=== PATIENT | male | born 1965 | race African-American/Black ===

== ENCOUNTER 2017-10-04 20:20 | Emergency (ER) | payer OTHER | END 2017-10-04 20:40 | disposition home or self-care (01) | LOC: ERS 20:20 | DX: R59.0 Localized enlarged lymph nodes; Z79.899 Other long term (current) drug therapy; I10 Essential (primary) hypertension | CPT/HCPCS: 99282 ==

== ENCOUNTER 2017-10-05 06:46 | Emergency (ER) | payer OTHER ==
[2017-10-05 07:34] LABS: #Eosinphils 0.1 thou/uL (0.0-0.7); #Lymphocytes 1.8 thou/uL (1.20-3.40); #Monocytes 0.9 thou/uL (0.11-0.59); #Neutrophils 10.5 thou/uL (1.40-6.50); %Basophils 0.3 % (0.0-1.0); %Eosinophils 0.4 % (0.0-10.0); %Lymphocytes 13.6 % (21.0-51.0); %Monocytes 6.5 % (0.0-10.0); %Neutrophils 79.1 % (42.0-75.0); Hemoglobin 13.9 g/dL (14.0-18.0); Mean Corpuscular HGB CONC 33.4 g/dL (32.0-36.0); Mean Corpuscular Hemoglobin 31.2 pg (27.0-31.0); Mean Corpuscular Volume 93.3 fl (80.0-94.0); Mean Platelet Volume 8.3 fL (7.4-10.4); Platelet Count 266 thou/uL (130-400); RBC Distribution Width 11.9 % (11.5-14.5); Red Blood Cell (RBC) Count 4.45 mill/uL (4.70-6.10); White Blood Cell (WBC) Count 13.2 thou/uL (4.8-10.8)
[2017-10-05 07:59] LABS: ALT (SGPT) 21 U/L (8-55); AST (SGOT) 14 U/L (5-34); Albumin 4.5 g/dL (3.5-5.0); Alkaline Phosphatase 75 U/L (40-150); Anion Gap 10 mmol/L (10-20); BUN (Urea Nitrogen) 11 mg/dL (8.4-25.7); Bilirubin, Total 0.8 mg/dL (0.2-1.2); Calc. Creatinine Clearance 0 mL/min (70-130); Calcium 9.6 mg/dL (7.8-10.44); Carbon Dioxide 31 mmol/L (22-29); Chloride 101 mmol/L (98-107); Estimated GFR-MDRD Greater than 90; Globulin 3.6 g/dL (2.4-3.5); Glucose 114 mg/dL (70-105); Potassium 3.7 mmol/L (3.5-5.1); Protein, Total 8.1 g/dL (6.0-8.3); Sodium 138 mmol/L (136-145)
[2017-10-05] MEDS ORDERED: Ketorolac Tromethamine 30 MG/ML VIAL ONE (08:09)
--- NOTE | 2017-10-05 09:09 | CT ---
CT NECK WITH CONTRAST: Date: 10/05/17 HISTORY: 51-year-old male with cervicalgia: Sore throat and swollen glands for 1-2 days.. Dysphagia. FINDINGS: Pharyngeal mucosal space: Diffuse thickening of mucosa throughout the nasopharynx, oropharynx, and l arynx, consistent with pharyngitis. Diffuse hyperplasia of the adenoids, but the palatine tonsils and adenoids are not significantly enlarged. Submandibular space: There is a 9 x 10 x 6 mm calculus within the right submandibular gland. No evid ence of ductal ectasia. There is a punctate 2 x 1.5 mm calcification in the right pharyngeal mucosal space, probably not along the path of the submandibular duct. The right submandibular gland is asymme trically diffusely enlarged, and has increased enhancement, compared to the relatively normal contral ateral left submandibular gland. There is fat stranding representing edema in the right submandibular space, and in the adjacent superficial subcutaneous fat on the right. There are multiple enlarged bi lateral, reactive Level IA (submental) and IB (submandibular) lymph nodes, right greater than left. T he right Level IIA and IIB lymph nodes are larger and greater in number compared to the left. Other than the right-sided cervical lymphadenopathy, no abnormality is identified involving the poste rior cervical, parotid, carotid, and branch operations coordinator spaces. IMPRESSION: 1. Evidence for sialadenitis involving the right submandibular gland. 2. Sialolithiasis: Moderately large calculus within the right submandibular gland. 3. Evidence for pharyngitis and possible laryngitis. 4. No evidence of abscess. POS: [facility]
[2017-10-05] MEDS ORDERED: ISOVUE-370 76%-LOCM 1 ML ONE (14:44)
== END 2017-10-05 10:01 | disposition home or self-care (01) ==
LOC: ERS 06:46
DX: K11.20 Sialoadenitis, unspecified (principal); K11.5 Sialolithiasis; J02.9 Acute pharyngitis, unspecified; E78.5 Hyperlipidemia, unspecified; I10 Essential (primary) hypertension
CPT/HCPCS: 36415; 70491; 80053; 83605; 85025; 96361; 96374; J1885

== ENCOUNTER 2017-10-10 23:01 | Inpatient (IN) | payer OTHER ==
[2017-10-11 01:53] LABS: Hemoglobin 14.1 g/dL (14.0-18.0); Mean Corpuscular HGB CONC 33.3 g/dL (32.0-36.0); Mean Corpuscular Hemoglobin 30.4 pg (27.0-31.0); Mean Corpuscular Volume 91.4 fl (80.0-94.0); Mean Platelet Volume 7.9 fL (7.4-10.4); Platelet Count 365 thou/uL (130-400); RBC Distribution Width 11.8 % (11.5-14.5); Red Blood Cell (RBC) Count 4.64 mill/uL (4.70-6.10); White Blood Cell (WBC) Count 20.9 thou/uL (4.8-10.8)
[2017-10-11 02:11] LABS: Band 1 % (5-11); Eosinophils 2 % (0-10); Lymphocytes 13 % (21-51); MDiff Complete? YES; Monocytes 8 % (0-10); Neutrophil 76 % (42-75)
[2017-10-11 02:13] LABS: ALT (SGPT) 31 U/L (8-55); AST (SGOT) 18 U/L (5-34); Albumin 4.2 g/dL (3.5-5.0); Alkaline Phosphatase 85 U/L (40-150); Anion Gap 14 mmol/L (10-20); BUN (Urea Nitrogen) 19 mg/dL (8.4-25.7); Bilirubin, Total 1.5 mg/dL (0.2-1.2); Calc. Creatinine Clearance 0 mL/min (70-130); Carbon Dioxide 27 mmol/L (22-29); Chloride 100 mmol/L (98-107); Estimated GFR-MDRD Greater than 90; Globulin 4.9 g/dL (2.4-3.5); Glucose 118 mg/dL (70-105); Protein, Total 9.1 g/dL (6.0-8.3); Sodium 137 mmol/L (136-145)
[2017-10-11] MEDS ORDERED: Dexamethasone 10 MG/ML VIAL ONE (02:31)
[2017-10-11] MEDS ORDERED: Ketorolac Tromethamine 30 MG/ML VIAL ONE ×2 (03:22→15:39)
[2017-10-11] MEDS ORDERED: Piperacillin/Tazobactam 4.5 GM VIAL ONE (04:40)
[2017-10-11] MEDS ORDERED: Mag-Al 1200 mg/1200 mg/30 ML UDCUP PO PRN (06:28)
[2017-10-11] MEDS ORDERED: Artificial Tears 18 DROP/0.9 ML EA EYE PRN (06:28)
[2017-10-11] MEDS ORDERED: Loperamide HCl 2 MG CAP PO PRN (06:28)
[2017-10-11] MEDS ORDERED: Zolpidem Tartrate 5 MG TAB PO PRN (06:28)
[2017-10-11] MEDS ORDERED: Ketorolac Tromethamine 30 MG/ML VIAL IVP PRN (06:28)
[2017-10-11] MEDS ORDERED: Milk Of Magnesia 30 ML UDCUP PO PRN (06:28)
[2017-10-11] MEDS ORDERED: Acetaminophen 325 MG TAB PO PRN (06:28)
[2017-10-11] MEDS ORDERED: Loratadine 10 MG TAB PO PRN (06:28)
[2017-10-11] MEDS ORDERED: Senokot 8.6 MG TAB PO PRN (06:28)
[2017-10-11] MEDS ORDERED: HYDROcodone/Acetaminophen 5/325 mg Tablet PO PRN (06:28)
[2017-10-11] MEDS ORDERED: Eucerin (Mineral Oil/Petrolatum,White) 30 gm Jar TOP PRN (06:28)
[2017-10-11] MEDS ORDERED: Ondansetron ODT 4 MG TAB PO PRN (06:28)
[2017-10-11] MEDS ORDERED: Sodium Chloride 0.65% Nasal 44 ML BOT EA NARE PRN (06:28)
[2017-10-11] MEDS ORDERED: Guaifenesin DM 100-10/5 ML UDCUP PO PRN (06:28)
[2017-10-11] MEDS ORDERED: hydrALAZINE 20 MG/ML VIAL SLOW IVP PRN (06:28)
[2017-10-11] MEDS ORDERED: Chloraseptic Spray 180 ml Bottle PO PRN (06:28)
[2017-10-11] MEDS ORDERED: Ondansetron HCl/PF 4 MG/2 ML Vial IVP PRN ×2 (06:28→10:23)
[2017-10-11] MEDS ORDERED: Diabetic Tussin 200 MG/10 ML UDCUP PO PRN (06:28)
[2017-10-11 06:30] VITALS: BMI 34.9
[2017-10-11] MEDS ORDERED: Morphine 4 MG/ML VIAL SLOW IVP PRN (07:00)
[2017-10-11] MEDS ORDERED: Vancomycin HCl 500 MG in Sodium Chloride 0.9% 100 ML IVPB SCH (07:30)
--- NOTE | 2017-10-11 07:45 | HP ---
PRIMARY CARE PHYSICIAN: Dr. Lester Fernandez. REASON FOR ADMISSION: Submandibular gland abscess, dysphagia, failure of outpatient therapy, sialoli thiasis to submandibular gland. HISTORY OF PRESENT ILLNESS: A 51-year-old -[place] male who presented to emergency room for evaluation of trouble swallowing. The patient reports that he has stone in his right mandibular glan d for about 10 days. He saw ENT doctor, Dr. Serrano on and he was given 2 steroid shots and he was kept on oral antibiotic therapy with Keflex. The patient took 6 doses of Keflex at home, but his swelling was getting worse. He was not feeling normal and now he started having difficulty swall owing and his voice also started muffling and was gotten worse and that is why the patient came to ergency room for evaluation. He denies any fever. He denies any chest pain, palpitation, shortness of breath. He denies any UTI symptoms. He denies any constipation, diarrhea. He denies any headach e, focal motor or sensory symptoms. The patient does have dull aching pain in his throat which is throbbing in nature about 10/10 in inte nsity, exaggerate by food, also having difficulty swallowing and it is painful swallowing. The patie nt voice also changed to muffled voice. He denies any stridor. In the emergency room, the patient had CT soft tissue neck protocol and which showed 5.7 x 4.6 x 5.7 cm large partially loculated rim enhancing fluid collection in the right oropharynx, which was consis tent with right submandibular gland abscess and surrounding cellulitis with a 7 mm stone in submandib ular gland. This abscess was posing mass effect on the right to left shift on narrowing of the glott is and subglottic airway. The patient also had leukocytosis. We are admitting this patient in hospital for further evaluation and treatment. REVIEW OF SYSTEMS: The following complete review of systems was negative, unless otherwise mentioned in the HPI or below: Constitutional: Weight loss or gain, ability to conduct usual activities. Sk in: Rash, itching. Eyes: Double vision, pain. ENT/Mouth: Nose bleeding, neck stiffness, pain, te nderness. Cardiovascular: Palpitations, dyspnea on exertion, orthopnea. Respiratory: Shortness of breath, wheezing, cough, hemoptysis, fever or night sweats. Gastrointestinal: Poor appetite, abdom inal pain, heartburn, nausea, vomiting, constipation, or diarrhea. Genitourinary: Urgency, frequenc y, dysuria, nocturia. Musculoskeletal: Pain, swelling. Neurologic/Psychiatric: Anxiety, depressio n. Allergy/Immunologic: Skin rash, bleeding tendency. Please see my HPI for pertinent positive and negative. All other review of systems reviewed and negative except as mentioned in the HPI. ALLERGIES: No known drug allergy. CURRENT HOME MEDICATIONS: Lisinopril 2.5 mg p.o. daily. PAST MEDICAL HISTORY: Hypertension, dyslipidemia, recent diagnosis of sialolithiasis of submandibula r gland. PAST SURGICAL HISTORY: Fistula surgery, unknown type. PAST PSYCHIATRIC HISTORY: Reviewed and negative. SOCIAL HISTORY: The patient lives at home. No history of tobacco, alcohol or illicit drug abuse. FAMILY HISTORY: No strong family history of premature coronary artery disease, stroke or cancer. EMERGENCY ROOM COURSE: The patient has received vancomycin, Zosyn, Toradol 30 mg, Decadron 8 mg, IV fluid 2 liter. PHYSICAL EXAMINATION: VITAL SIGNS: On arrival, blood pressure 131/84, pulse 90, respiratory rate 20, temperature 98.8, sat uration 97% on room air, weight 90.7 kilograms. GENERAL: The patient is currently alert, awake, no obvious acute distress, afebrile. HEAD: Normocephalic, atraumatic. EYES: Pupils are round, reactive to light. Extraocular muscle intact. No nystagmus. ENT: The patient has a right ear erythema and bulging of the right-sided tympanic membrane. Pharyng eal erythema noted, but no exudate. Trismus is also noted because of swelling. NECK: The patient does have cervical lymphadenopathy, induration noted on the right side of the neck in the submandibular region. LUNGS: Clear to auscultation without any rhonchi or rales. CARDIAC: S1, S2 regular without any murmur. ABDOMEN: Soft, bowel sounds present, nontender, nondistended. No organomegaly, no mass, no suprapub ic tenderness. BACK: Unremarkable, no CVA tenderness. EXTREMITIES: Upper extremities: Passive movement of all joints are normal. Lower extremities: No edema. Good peripheral pulsation. SKIN: No skin rash. HEMATOLOGICAL: No lymphadenopathy. PSYCHIATRIC: Normal affect. SIGNIFICANT LABORATORY DATA: CBC: WBC 20.9, hemoglobin 14.1, platelets 365 with bandemia. BMP: So dium 137, potassium 4.0, chloride 100, carbon dioxide 27, anion gap 14, BUN 19, creatinine 1.02, gluc ose 118, calcium 10.0, lactic acid 0.9. LFT: AST 18, ALT 31, alkaline phosphatase 85, albumin 4.2. ASSESSMENT AND PLAN: IMPRESSION: 1. Dysphagia due to mass effect of submandibular gland enlargement. 2. Submandibular gland enlargement with cellulitis and abscess on the right side that is precipitate d by sialolithiasis and failed outpatient therapy. 3. Sialolithiasis of submandibular gland. 4. Failure of outpatient therapy. 5. Leukocytosis. 6. Hypertension. PLAN: 1. Full admission to medical floor. ENT consultation. The patient will need possible surgical inte rvention. We will continue with broad spectrum antibiotic therapy with vancomycin and Zosyn. Pain w ill be controlled with Toradol 15 mg q.6 hourly and morphine p.r.n. basis. For swelling, we will als o continue with Decadron 4 mg IV q.8 hourly. As patient is not able to take oral intake, that is why we will hydrate him with IV fluid with NS at 100 mL per hour. We will use p.r.n. basis his blood pr essure medication. We will repeat labs tomorrow. 2. Deep venous thrombosis prophylaxis. Lovenox 40 mg subcu daily. 3. Gastrointestinal prophylaxis. Pepcid 20 mg IV b.i.d. 4. Code status: The patient is FULL CODE. The patient does not have any surrogate decision maker. Disposition plan based on clinical course. We are expecting patient's stay in hospital more than 2 m idnights. Plan of care discussed with the patient in detail.
[2017-10-11] MEDS: Sodium Chloride 0.9% 1,000 ML IV SCH (07:57)
[2017-10-11] MEDS: Enoxaparin Sodium 40 MG/0.4 ML SYRINGE SC SCH (07:58)
[2017-10-11] MEDS: Famotidine 40 MG/4 ML VIAL IV SCH (07:58)
[2017-10-11] MEDS: Dexamethasone 4 mg/ml Vial SLOW IVP SCH ×3 (09:34→22:02)
[2017-10-11] MEDS ORDERED: Lidocaine 1% w/Epinephrine 1:200K 30 ML VIAL ONE (09:58)
[2017-10-11] MEDS ORDERED: Midazolam HCl 2 mg/2 ml Vial ONE (10:04)
[2017-10-11] MEDS ORDERED: Fentanyl 250 MCG/5 ML VIAL ONE (10:04)
[2017-10-11] MEDS ORDERED: Phenylephrine 1% Nasal Spray 15 ML BOT ONE (10:12)
[2017-10-11] MEDS ORDERED: Promethazine HCl 25 MG/ML VIAL SLOW IVP PRN (10:23)
[2017-10-11] MEDS ORDERED: Promethazine HCl 25 MG/ML VIAL IM PRN (10:23)
[2017-10-11] MEDS ORDERED: Bupivacaine HCl 0.5%/Epinephrine 1:200,000/PF 30 ml Vial ONE (10:41)
[2017-10-11] MEDS ORDERED: HYDROmorphone 0.5 MG/0.5 ML SYRINGE ONE (11:12)
[2017-10-11] MEDS ORDERED: Dexamethasone 4 mg/ml Vial ONE (11:12)
[2017-10-11] MEDS ORDERED: SUGAMMADEX SODIUM 500 MG/5 ML VIAL ONE (11:12)
[2017-10-11] MEDS ORDERED: Piperacillin/Tazobactam 3.375 GM in Sodium Chloride 0.9% 100 ML IVPB SCH (12:00)
[2017-10-11] MEDS: Clindamycin/D5W 900 MG in Premix Bag 1 BAG IVPB SCH ×2 (14:40→22:03)
--- NOTE | 2017-10-11 15:04 | OP ---
DATE OF PROCEDURE: 10/11/2017 PREOPERATIVE DIAGNOSIS: Right submandibular space abscess secondary to sialolithiasis. POSTOPERATIVE DIAGNOSIS: Right submandibular space abscess secondary to sialolithiasis. PROCEDURE PERFORMED: Incision and drainage of right submandibular space abscess through external jose rock. SURGEON: Genaro Nevarez M.D. FLOOR CARE TECHNICIAN: None. ANESTHESIA: General endotracheal anesthetic. ESTIMATED BLOOD LOSS: 30 mL. FLUIDS: 1000 mL crystalloid. COMPLICATIONS: None. FINDINGS: Large pus-filled abscess tracking medial to the masseter. IMPLANTS: Quarter inch Lisa sutured in place. INDICATIONS FOR SURGERY: The patient is a 51-year-old man with a progressively worsening right subma ndibular space abscess. He is having some airway blockage. He is brought to the operating room [facility] for incision and drainage. DESCRIPTION OF OPERATION: After properly identifying the patient, the patient was brought to the ope rating room and placed on the operating table, placed under adequate general endotracheal anesthetic, required difficult airway intubation as there was considerable swelling of the hypopharynx from that right side. Once the intubation was confirmed, the patient was then prepped and draped in usual jamshid rile fashion. The patient's neck was extended and head turned to the left. An incision was made hollie ng the level of the hyoid bone and along the relaxing skin tension line on the neck. The platysma wa s transected and then blunt dissection was carried out towards the abscess until the abscess was ente red and a large amount of pus was expressed. A sample was taken for culture and sensitivity. I then used my finger to probe the abscess to verify there was no loculations and all of the abscess was op ened. I then irrigated with saline and then a quarter inch [place] was inserted into the wound and t he [place] was sutured in place. The patient was cleaned. A Kerlix fluffs were applied and then a r oll placed around the neck to keep the bandage in place. At this point, the patient was turned back over to Anesthesia. The patient was awakened and extubated in the operating room and taken to recove room in stable condition.
--- NOTE | 2017-10-11 15:17 | CT ---
PRELIMINARY REPORT/[facility]/EMERGENTY AFTER-HOURS PROCEDURE CT Neck With Intravenous Contrast EXAM DATE/TIME: Exam ordered 10/11/2017 2:49 AM CLINICAL HISTORY: 51 years old, male; Pain; Throat pain; Patient HX: 51m presents to the ed for evaluation of increased trouble swallowing today. Reports stone in right submandibular gland for about 10 days. Reports seei ng dr. Serrano on and was given 2 steroid shots and has been on keflex 3 days (has gotten 6 d oses). Reports overall swelling has gone down but throat swelling has gotten worse and has been havin g a hard time swallowing and has a muffled voice which is worse today. Patient states dr. Serrano ment ioned surgery once swelling does down. TECHNIQUE: Axial computed tomography images of the neck with intravenous contrast. Coronal and sagittal reformatted images were created and reviewed. COMPARISON: No relevant prior studies available. FINDINGS: Nasopharynx: Normal. Oropharynx: There is a 5.7 X 4.6 x 5.7 cm large partially loculated rim-enhancing fluid collection wi thin the RIGHT oropharynx in the setting of marked RIGHT submandibular gland enlargement and hyper en hancement with extensive surrounding inflammatory stranding consistent with acute cellulitis with abs cess. There is a 7 mm calculus adjacent to the submandibular gland compatible sialolithiasis. This re sults in mass effect on the airway with RIGHT to LEFT shift and narrowing of the glottic/subglottic a irway. Hypopharynx: See above. Larynx: See above. Trachea: Normal. Retropharyngeal space: Normal. Submandibular/parotid glands: See above. Thyroid: Normal. No enlarged or calcified nodules. Bones/joints: No acute fracture. Soft tissues: Normal. Vasculature: No acute findings. Lymph nodes: Normal. No lymphadenopathy. Lung apices: Unremarkable as visualized. IMPRESSION: RIGHT submandibular sialadenitis/sialolithiasis complicated by large 5.7 cm abscess as above. Narrowi ng of the airway as above. Thank you for allowing us to participate in the care of your patient. Dictated and Authenticated by: Black Goodrich MD 10/11/2017 4:14 AM Central Time ([place] & [place]) FINAL REPORT CONTRAST ENHANCED CT IMAGES SOFT TISSUE NECK: HISTORY: The patient reports having a right submandibular stone. FINDINGS: Final report. Preliminary exam was performed by [facility]. CT images of soft tissue neck again demonstrate a large fluid-filled density in the right submandibul ar space. There are enhancing solid components as well as extensive cystic portions. There is a lar ge approximately 7 mm salivary calculus. The overall size of the submandibular abscess is significan tly increased compared to the previous CT from 10/05/18. I concur with the dictation from [facility]. POS: [facility]
[2017-10-11] MEDS ORDERED: Lidocaine 1% PF 5 ML VIAL ONE (15:39)
[2017-10-11] MEDS ORDERED: Dexamethasone 20 MG/5 ML VIAL ONE (15:39)
[2017-10-11] MEDS ORDERED: Succinylcholine Chloride 20 MG/ML 10 ml SYRINGE FS ONE (15:39)
[2017-10-11] MEDS ORDERED: Ondansetron HCl/PF 4 MG/2 ML Vial ONE (15:39)
[2017-10-11] MEDS ORDERED: PROPOFOL 200 MG/20 ML VIAL ONE (15:39)
[2017-10-11] MEDS ORDERED: Esmolol 100 MG/10 ML VIAL ONE (15:39)
[2017-10-11] MEDS ORDERED: ISOVUE-370 76%-LOCM 1 ML ONE (16:39)
[2017-10-11] MEDS ORDERED: Vancomycin HCl 1.5 GM in Sodium Chloride 0.9% 250 ML 300 ML IVPB SCH (18:00)
[2017-10-12] MEDS: Famotidine 40 MG/4 ML VIAL IV SCH ×3 (05:09→20:22)
[2017-10-12] MEDS: Sodium Chloride 0.9% 1,000 ML IV SCH ×4 (05:09→19:08)
[2017-10-12 05:38] LABS: Band 2 % (5-11); Eosinophils 3 % (0-10); Hemoglobin 12.5 g/dL (14.0-18.0); Lymphocytes 29 % (21-51); MDiff Complete? YES; Mean Corpuscular HGB CONC 33.6 g/dL (32.0-36.0); Mean Corpuscular Hemoglobin 32.1 pg (27.0-31.0); Mean Corpuscular Volume 95.7 fl (80.0-94.0); Monocytes 7 % (0-10); Neutrophil 59 % (42-75); Platelet Count 311 thou/uL (130-400); RBC Distribution Width 11.8 % (11.5-14.5); White Blood Cell (WBC) Count 28.9 thou/uL (4.8-10.8)
[2017-10-12 05:50] LABS: ALT (SGPT) 37 U/L (8-55); AST (SGOT) 21 U/L (5-34); Albumin 3.5 g/dL (3.5-5.0); Alkaline Phosphatase 78 U/L (40-150); Anion Gap 11 mmol/L (10-20); BUN (Urea Nitrogen) 17 mg/dL (8.4-25.7); Bilirubin, Total 0.7 mg/dL (0.2-1.2); Calc. Creatinine Clearance 149 mL/min (70-130); Calcium 8.9 mg/dL (7.8-10.44); Carbon Dioxide 25 mmol/L (22-29); Chloride 106 mmol/L (98-107); Estimated GFR-MDRD Greater than 90; Globulin 3.9 g/dL (2.4-3.5); Glucose 109 mg/dL (70-105); Potassium 4.4 mmol/L (3.5-5.1); Protein, Total 7.4 g/dL (6.0-8.3); Sodium 138 mmol/L (136-145)
[2017-10-12] MEDS: Dexamethasone 4 mg/ml Vial SLOW IVP SCH ×3 (05:50→21:26)
[2017-10-12] MEDS: Clindamycin/D5W 900 MG in Premix Bag 1 BAG IVPB SCH ×3 (05:51→21:26)
[2017-10-12] MEDS: Enoxaparin Sodium 40 MG/0.4 ML SYRINGE SC SCH (08:43)
[2017-10-12] MEDS ORDERED: Bisoprolol Fumarate/HCTZ 5 mg/6.25 mg Tablet PO SCH (09:15)
[2017-10-12] MEDS ORDERED: Amlodipine 5 MG TAB PO SCH (09:15)
[2017-10-12] MEDS: Amlodipine 5 MG TAB PO SCH (09:41)
[2017-10-12] MEDS: Bisoprolol Fumarate/HCTZ 5 mg/6.25 mg Tablet PO SCH (10:08)
--- NOTE | 2017-10-12 12:54 | PDOC.PN ---
- Subjective Encounter Start Date: 10/12/17 Encounter Start Time: 08:00 Pt seen for followup re: submandibular abscess. Feels better. denies chest pain, shortness of breath, fevers or chills. - Objective Resuscitation Status: Resuscitation Status FULL:Full Resuscitation MAR Reviewed: Yes Vital Signs & Weight: Vital Signs (12 hours) Temp Pulse Resp BP BP Pulse Ox 10/12/17 09:41 76 161/103 H 10/12/17 08:00 98.2 F 73 16 161/103 H 97 10/12/17 04:00 98.1 F 77 18 167/96 H 96 I&O: 10/11/17 10/12/17 10/13/17 06:59 06:59 06:59 Intake Total 1000 240 Balance 1000 240 Result Diagrams: 10/12/17 04:08 10/12/17 04:08 Phys Exam - Physical Examination Obese HEENT: PERRLA, moist MMs, sclera anicteric, oral pharynx no lesions Dressing Respiratory: no wheezing, no rales, no rhonchi, clear to auscultation bilateral Cardiovascular: RRR, no rub Gastrointestinal: soft, non-tender, no distention, positive bowel sounds Neurological: moves all 4 limbs Psychiatric: normal affect, A&O x 3 Dx/Plan (1) Submandibular abscess Code(s): K12.2 - CELLULITIS AND ABSCESS OF MOUTH Status: Acute Comment: s/p drainage by ENT service, continue antibiotics as below (2) Sialolithiasis Code(s): K11.5 - SIALOLITHIASIS Status: Acute Comment: sialolithiasis causing submandibular abscess, s/p drainage (3) HTN (hypertension) Code(s): I10 - ESSENTIAL (PRIMARY) HYPERTENSION Status: Chronic Comment: Monitor vital signs, titrate antihypertensives as needed (4) Dyslipidemia Code(s): E78.5 - HYPERLIPIDEMIA, UNSPECIFIED Status: Chronic Comment: continue Pravachol - Plan * . Review of Systems - Review of Systems Constitutional: negative: fever, chills, sweats, weakness, malaise ENT: negative: Ear Pain, Ear Discharge, Nose Pain, Nose Discharge, Nose Congestion, Mouth Pain, Mouth Swelling, Throat Pain, Throat Swelling Respiratory: negative: Cough, Shortness of Breath, SOB with Excertion, Pleuritic Pain, Wheezing Cardiovascular: negative: chest pain, palpitations, orthopnea, paroxysmal nocturnal dyspnea, edema, light headedness Gastrointestinal: negative: Nausea, Vomiting, Abdominal Pain, Diarrhea, Constipation, Melena, Hematochezia Genitourinary: negative: Dysuria, Frequency, Incontinence, Hematuria, Retention - Medications/Allergies Allergies/Adverse Reactions: Allergies Allergy/AdvReac Type Severity Reaction Status Date / Time No Known Allergies Allergy Unverified 10/11/17 06:37 Medications: Current Medications Acetaminophen (Tylenol) 650 mg PO Q4H PRN PRN Reason: Headache/Fever or Pain Hydrocodone Bitart/Acetaminophen ([place] 5/325) 1 tab PO Q4H PRN PRN Reason: Moderate Pain (4-6) Al Hydroxide/Mg Hydroxide (Maalox) 30 ml PO Q6H PRN PRN Reason: Heartburn or Indigestion Amlodipine Besylate (Norvasc) 5 mg PO DAILY [facility] Last Admin: 10/12/17 09:41 Dose: 5 mg Artificial Tears (Tears Naturale) 0 drop EA EYE PRN PRN PRN Reason: Dry Eyes Bisoprolol Fumarate/HCTZ (Ziac 5-6.25) 1 tab PO DAILY [facility] Last Admin: 10/12/17 10:08 Dose: 1 tab Dexamethasone (Decadron) 4 mg SLOW IVP Q8HR [facility] Last Admin: 10/12/17 05:50 Dose: 4 mg Enoxaparin Sodium (Lovenox) 40 mg SC 0900 [facility] Last Admin: 10/12/17 08:43 Dose: 40 mg Famotidine (Pepcid) 20 mg IV Q12HR [facility] Last Admin: 10/12/17 10:09 Dose: 20 mg Guaifenesin (Robitussin Sf) 200 mg PO Q4H PRN PRN Reason: Cough Guaifenesin/Dextromethorphan (Robitussin Dm) 15 ml PO Q4H PRN PRN Reason: Cough Hydralazine HCl (Apresoline) 10 mg SLOW IVP Q4H PRN PRN Reason: Systolic BP > 180 Sodium Chloride (Normal Saline 0.9%) 1,000 mls @ 100 mls/hr IV .Q10H [facility] Last Admin: 10/12/17 05:50 Dose: 1,000 mls Clindamycin Phosphate/Dextrose (900 mg/ Device) 50 mls @ 100 mls/hr IVPB Q8HR [facility] Last Admin: 10/12/17 05:51 Dose: 50 mls Ketorolac Tromethamine (Toradol) 15 mg IVP Q6H PRN PRN Reason: Pain Stop: 10/16/17 06:29 Loperamide HCl (Imodium) 2 mg PO PRN PRN PRN Reason: Diarrhea/Loose Stools Loratadine (Claritin) 10 mg PO DAILYPRN PRN PRN Reason: Sinus Symptoms Magnesium Hydroxide (Milk Of Magnesium) 30 ml PO DAILYPRN PRN PRN Reason: Constipation Mineral Oil/White Petrolatum (Eucerin Cream) 0 gm TOP BIDPRN PRN PRN Reason: Dry Skin Morphine Sulfate (Morphine) 2 mg SLOW IVP Q4H PRN PRN Reason: Pain Ondansetron HCl (Zofran Odt) 4 mg PO Q6H PRN PRN Reason: Nausea/Vomiting Ondansetron HCl (Zofran) 4 mg IVP Q6H PRN PRN Reason: Nausea/Vomiting Phenol (Chloraseptic [place] 180 Ml Bot) 0 ml PO PRN PRN PRN Reason: Sore Throat Senna (Senokot) 2 tab PO HSPRN PRN PRN Reason: Constipation Simvastatin (Zocor) 10 mg PO HS [facility] Sodium Chloride ([employer] Nasal [place] 0.65%) 0 ml EA NARE QIDPRN PRN PRN Reason: Nasal Congestion Zolpidem Tartrate (Ambien) 5 mg PO HSPRN PRN PRN Reason: Insomnia
[2017-10-12] MEDS ORDERED: Simvastatin 5 MG TAB PO SCH (21:00)
[2017-10-13 04:09] VITALS: TEMP 97.8
[2017-10-13] MEDS: Sodium Chloride 0.9% 1,000 ML IV SCH (05:11)
[2017-10-13] MEDS: Clindamycin/D5W 900 MG in Premix Bag 1 BAG IVPB SCH (05:11)
[2017-10-13] MEDS: Dexamethasone 4 mg/ml Vial SLOW IVP SCH (05:11)
[2017-10-13] MEDS: Amlodipine 5 MG TAB PO SCH (08:22)
[2017-10-13] MEDS: Bisoprolol Fumarate/HCTZ 5 mg/6.25 mg Tablet PO SCH (08:22)
[2017-10-13] MEDS: Famotidine 40 MG/4 ML VIAL IV SCH (08:23)
[2017-10-13] MEDS: Enoxaparin Sodium 40 MG/0.4 ML SYRINGE SC SCH (08:23)
--- NOTE | 2017-10-13 11:42 | DIS ---
DATE OF ADMISSION: 10/11/2017 DATE OF DISCHARGE: 10/13/2017 PRIMARY CARE PROVIDER: [facility], [place]. DISCHARGE DIAGNOSES: 1. Submandibular abscess. 2. Sialolithiasis. CONDITION OF PATIENT AT THE TIME OF DISCHARGE: Stable. I assessed Mr. Marrero on the day of discharge . He denies any chest pain or shortness of breath. Vital signs are stable. S1 and S2 are heard, re gular. Lungs are clear to auscultation bilaterally. CONSULTATIONS DURING THIS HOSPITALIZATION: ENT, Dr. Genaro Nevarez. DISCHARGE MEDICATIONS: The patient will receive antibiotics per ENT Service. Otherwise, he is being discharged home on his home medications of Norvasc 5 mg daily, bisoprolol/hydrochlorothiazide 5/6.25 mg daily and Pravachol 20 mg at bedtime. HOSPITAL COURSE: Mr. Marrero is a pleasant 51-year-old gentleman who was admitted to [facility] for right-sided submandibular abscess secondary to sialolithiasis. He was seen by E NT service. He underwent incision and drainage of the right submandibular space abscess through exte rnal approach. While in hospital, he was treated with intravenous clindamycin. He will be seen in E NT clinic on the day of discharge for drain removal and for further management of antibiotics. Many thanks for allowing me to participate in your patient's care. Please feel free to contact me wi th any questions or concerns. DISCHARGE DESTINATION: Home. TOTAL AMOUNT OF TIME SPENT COORDINATING THIS DISCHARGE: 32 minutes.
[2017-10-13 14:49] VITALS: BP 162/84
== END 2017-10-13 12:16 | disposition home or self-care (01) | DRG 138 ==
LOC: ERS 23:01 → OBSVTOIN 10-11 04:55 → T4-A 10-11 04:55
PROVIDERS: ADMIT Internal Medicine; ATTEND Internal Medicine
PROC: 0W950ZZ Drainage of Lower Jaw, Open Approach (ICD-10-PCS; principal; 2017-10-11)
DX: K11.5 Sialolithiasis (principal); R13.10 Dysphagia, unspecified; K11.3 Abscess of salivary gland; E78.5 Hyperlipidemia, unspecified; I10 Essential (primary) hypertension
CPT/HCPCS: 36415; 70492; 80053; 83605; 85025; 87040; 87070; 87205; 96361; 96365; 96367; 96372; 96375; J0670; J1100; J1170; J1650; J1885; J2001; J2250; J2405; J2543; J2704; J3010; J3370; J3490; J7050

== ENCOUNTER → 2017-12-10 | Day surgery (SDC) | payer OTHER ==
[2017-12-09 11:18] VITALS: BMI 35.6
[~2017-12-10] MED LIST: Dexamethasone 20 MG/5 ML VIAL ONE; Fentanyl 100 MCG/2 ML VIAL ONE; Lidocaine 1% PF 5 ML VIAL ONE; Lidocaine 1% w/Epinephrine 1:100K 30 ML VIAL ONE; Midazolam HCl 2 mg/2 ml Vial ONE; Non-Formulary Medication 1 EACH PO PRN; Ondansetron HCl/PF 4 MG/2 ML Vial IVP PRN; Ondansetron HCl/PF 4 MG/2 ML Vial ONE; PROPOFOL 200 MG/20 ML VIAL ONE; Promethazine HCl 25 MG/ML VIAL IM/IV PRN; SUGAMMADEX SODIUM 200 MG/2 ML VIAL ONE; Succinylcholine Chloride 20 MG/ML 10 ml SYRINGE FS ONE
--- NOTE | 2017-12-11 12:50 | EKG ---
Test Reason : PREOP Blood Pressure : / mmHG Vent. Rate : 079 BPM Atrial Rate : 079 BPM P-R Int : 202 ms QRS Dur : 088 ms QT Int : 372 ms P-R-T Axes : 051 -11 025 degrees QTc Int : 426 ms Normal sinus rhythm Moderate voltage criteria for LVH, may be normal variant Borderline ECG No previous ECGs available Confirmed by BENITO BUNN ([id number]) on 12/11/2017 12:49:29 PM Referred By: MICHELLE Confirmed By:BENITO BUNN
--- NOTE | 2017-12-11 13:16 | OP ---
DATE OF PROCEDURE: 12/10/2017 SURGEON: Dr. Dayday Serrano PREOPERATIVE DIAGNOSES: Right submandibular gland infection, right sialadenitis and right sialolithi asis. POSTOPERATIVE DIAGNOSES: Right submandibular gland infection, right sialadenitis and right sialolith iasis. PROCEDURE PERFORMED: Right submandibular gland excision with the facial nerve monitoring. FINDINGS: The patient had a stone deep within the submandibular duct. PROCEDURE IN DETAIL: After consent was obtained, the patient was identified, brought to the operatin g room and placed on the operating table in supine position. General endotracheal anesthesia was obt ained. The patient was positioned, prepped and draped for surgery. An incision was made 2 fingerbre adths below the angle of mandible in a natural skin crease and the previous incision and drainage inc ision was excised. We then carried the incision down through the platysma and encountered the capsul e of the submandibular gland. This then became the plane of dissection and inferiorly we dissected d own to the anterior aspect of digastric muscle and superiorly towards the body of the mandible. Care was made not to injure the submandibular branch of the facial nerve. We identified the lingual nerv e and the hypoglossal nerve and the submandibular duct. The duct was found to be dilated and had an obstructed stone and the duct was suture ligated distal to the stone and proximal to the opening of t he duct and the specimen included the stone within the duct. We then transected the ganglion, separa tulio the gland from the lingual nerve and addressed the facial artery and vein and sutured divided the facial vein, the facial artery was able to be dissected free and remained intact. Once the gland wa s removed we then spent time irrigating the wound and the previous abscess cavity. There was a fair amount of fibrosis which was encountered. We turned our attention to closing the wound. Hemostasis was obtained. A small amount of fibular Surgicel was placed at the site of where the duct entered th e floor of mouth and the wound was closed in layers, first with Monocryl for the deep layers and then 6-0 Prolene for the skin. Sterile Steri-Strips were applied. The patient was awakened, extubated, and taken to recovery room where he remained in stable condition prior to discharge home.
== END ==
LOC: SDC 15:24
PROVIDERS: ATTEND Specialist
PROC: 0CBG0ZZ Excision of Right Submaxillary Gland, Open Approach (ICD-10-PCS; principal; 2017-12-10)
DX: K11.23 Chronic sialoadenitis (principal); K11.5 Sialolithiasis; Q89.2 Congenital malformations of other endocrine glands; I10 Essential (primary) hypertension; E78.00 Pure hypercholesterolemia, unspecified; Z87.891 Personal history of nicotine dependence; Z79.899 Other long term (current) drug therapy
CPT/HCPCS: 88307; 93005; 93010; 96374; J1100; J2001; J2250; J2405; J2704; J3010

== ENCOUNTER 2020-08-21 06:23 | Day surgery (SDC) | payer OTHER ==
[2020-08-20 08:58] VITALS: BMI 36.5
[2020-08-21 07:45] LABS: #Basophils 0.1 thou/uL (0.0-0.2); #Eosinphils 0.3 thou/uL (0.0-0.7); #Lymphocytes 3.4 thou/uL (1.20-3.40); #Monocytes 0.6 thou/uL (0.11-0.59); #Neutrophils 5.1 thou/uL (1.40-6.50); %Basophils 1.4 % (0.0-1.0); %Eosinophils 3.1 % (0.0-10.0); %Lymphocytes 35.7 % (21.0-51.0); %Monocytes 6.4 % (0.0-10.0); %Neutrophils 53.4 % (42.0-75.0); Hemoglobin 13.4 g/dL (14.0-18.0); Mean Corpuscular HGB CONC 31.1 g/dL (32.0-36.0); Mean Corpuscular Hemoglobin 28.9 pg (27.0-31.0); Mean Corpuscular Volume 92.9 fL (78.0-98.0); Mean Platelet Volume 8.9 fL (7.4-10.4); Platelet Count 266 thou/uL (130-400); RBC Distribution Width 12.3 % (11.5-14.5); Red Blood Cell (RBC) Count 4.65 mill/uL (4.70-6.10); White Blood Cell (WBC) Count 9.5 thou/uL (4.8-10.8)
[2020-08-21 07:53] LABS: SARS-CoV-2 NAA Rapid Test Not Detected (NotDetected)
[2020-08-21] MEDS ORDERED: Sodium Chloride 0.9% 10 ML ONE (07:57)
[2020-08-21] MEDS ORDERED: Bacitracin Zinc Ointment 30 gm TUBE ONE (07:57)
[2020-08-21] MEDS ORDERED: Betamet Acet/Betamet Na Ph 30 MG/5 ML VIAL ONE (07:57)
[2020-08-21] MEDS ORDERED: Bupivacaine PF 0.5% 30 ML VIAL ONE (07:57)
[2020-08-21] MEDS ORDERED: Fentanyl 100 MCG/2 ML VIAL ONE (08:16)
[2020-08-21] MEDS ORDERED: PROPOFOL 200 MG/20 ML VIAL ONE (09:53)
[2020-08-21] MEDS ORDERED: Dexamethasone 20 MG/5 ML VIAL ONE (09:53)
[2020-08-21] MEDS ORDERED: Ondansetron PF 4 MG/2 ML Vial ONE (09:53)
[2020-08-21] MEDS ORDERED: Ketorolac Tromethamine 30 MG/ML VIAL ONE (09:53)
[2020-08-21] MEDS ORDERED: Lidocaine 1% PF 5 ML VIAL ONE (09:53)
[2020-08-21] MEDS ORDERED: PHENYLEPHRINE-NS 100 MCG/ML 10 ML SYRINGE ONE (09:53)
[2020-08-21] MEDS ORDERED: Labetalol HCl 100 MG/20 ML VIAL ONE (10:06)
--- NOTE | 2020-08-21 10:40 | OP ---
DATE OF PROCEDURE: 08/21/2020 PREOPERATIVE DIAGNOSIS: Left thumb trigger finger, and left carpal tunnel syndrome. POSTOPERATIVE DIAGNOSIS: Left thumb trigger finger, and left carpal tunnel syndrome. PROCEDURE PERFORMED: 1. Left thumb trigger digit release. 2. Left carpal tunnel release. SPECIMEN: None. ESTIMATED BLOOD LOSS: Less than 10 mL. TOURNIQUET TIME: 34 minutes. INJECTABLES: 27 mL, 0.5% Marcaine with no epi. FINDINGS: 1. Very tight transverse carpal ligament almost 2 cm area with early flattening of the median nerve, but no true hourglass formation. 2. Very tight A1 lanny with thickening at the thumb A1 lanny site. DESCRIPTION OF PROCEDURE: After successful general LMA technique, the limb was prepped and draped. We outlined the Werner incision over the radial aspect of the thumb A1 lanny avoiding the web space and a standard 2.5 cm carpal tunnel incision in line with the ring finger from mediolateral and in line with the Garrison's cardinal line distally and 5 mm proximal to the volar wrist flexion crease proximally. We exsanguinated the limb, gave the Marcaine injection as listed, and then approached the thumb first. We entered the Werner incision, carried through skin subcutaneous tissue with a sharp 11 blade knife. We then dissected down with a tenotomy scissor in combination with a right angle clamp to identify the digital nerves and retracted from the center of the field with the help of 2 assistance. Now that we had full visualization of the thumb, flexor pollicis longus as well as the A1 lanny was visualized and in the midline, released the A1 lanny completely with Nodaway blade. There was no masses, ganglions or other abnormality under the flexor pollicis longus, it was now free and no longer had inhibition of flexion and extension. We placed 2 mL of Celestone here and then closed the wound with interrupted 4-0 nylon simple pattern. We now approached transcarpal ligament and made the incision as outlined above, carried through skin and subcutaneous tissue until we reached the transverse carpal ligament itself. This was visualized and with forward retraction, we easily able to enter in the mid point and then released it distally using a Nodaway blade and then we stopped just short of the arch and dissected and released this portion with tenotomy scissors under direct visualization. The median nerve branches to include the motor branch was spared. We then released the transverse carpal ligament from the midportion proximally using combination of tenotomy scissors and Nodaway blade, and once we had done, we visualized the nerve, removed small amount of tenosynovium, but not enough for specimen, and median nerve flattening was revealed. We placed 3 mL of Celestone here while the tendons flexed and extend multiple cycles. We then allowed the patient to closed this incision with interrupted 4-0 nylon mattress pattern and the patient had a bulky dressing applied and left the operating room with the digits pink when the tourniquet was deflated with no evidence of anesthetic or operative complication. Job ID: [id number]
== END 2020-08-21 10:49 | disposition home or self-care (01) ==
LOC: SDC 06:23
PROVIDERS: ATTEND Orthopaedic Surgery Hand Surgery
PROC: 01N50ZZ Release Median Nerve, Open Approach (ICD-10-PCS; principal; 2020-08-21)
PROC: 0LN80ZZ Release Left Hand Tendon, Open Approach (ICD-10-PCS; principal; 2020-08-21)
DX: G56.02 Carpal tunnel syndrome, left upper limb (principal); M65.312 Trigger thumb, left thumb; I10 Essential (primary) hypertension; Z79.899 Other long term (current) drug therapy
CPT/HCPCS: 36415; 85025; J0690; J0702; J1100; J1885; J2405; J2704; J3010; J3490; S0020; U0002

== ENCOUNTER 2021-10-17 18:51 | Emergency (ER) | payer OTHER, SELFPAY ==
[2021-10-17] MEDS ORDERED: diphenhydrAMINE 50 MG/ML VIAL ONE (19:59)
[2021-10-17] MEDS ORDERED: Metoclopramide HCl 10 MG/2 ML VIAL ONE (19:59)
== END 2021-10-17 22:00 | disposition home or self-care (01) ==
LOC: ERS 18:51
DX: R51.9 Headache, unspecified (principal); E78.2 Mixed hyperlipidemia; I10 Essential (primary) hypertension; Z79.899 Other long term (current) drug therapy
CPT/HCPCS: 71045; 93005; 96374; 96375; J1200; J2765

== ENCOUNTER 2024-03-16 20:36 | Emergency (ER) | payer OTHER ==
[2024-03-16] MEDS ORDERED: Ketorolac Tromethamine 30 MG (1 mL) VIAL ONE (22:00)
[2024-03-16] MEDS ORDERED: Acetaminophen 500 MG TAB ONE (22:00)
== END 2024-03-16 22:42 | disposition home or self-care (01) ==
LOC: ERS 20:36
DX: H00.011 Hordeolum externum right upper eyelid (principal); L03.213 Periorbital cellulitis; E78.00 Pure hypercholesterolemia, unspecified; I10 Essential (primary) hypertension; Z79.899 Other long term (current) drug therapy
CPT/HCPCS: 96372; 99283; J1885

== ENCOUNTER 2024-06-23 17:40 | Emergency (ER) | payer OTHER ==
[2024-06-23 18:21] LABS: #Basophils 0.06 10x3/uL (0.0-0.2); %Basophils 0.8 % (0.0-1.0); %Eosinophils 3.9 % (0.0-10.0); %Lymphocytes 39.2 % (21.0-51.0); %Monocytes 8.8 % (0.0-10.0); %Neutrophils 46.9 % (42.0-75.0); Hematocrit 39.6 % (42.0-52.0); Mean Corpuscular HGB CONC 32.8 g/dL (32.0-36.0); Mean Corpuscular Hemoglobin 29.8 pg (27.0-31.0); Mean Corpuscular Volume 90.8 fL (78.0-98.0); Mean Platelet Volume 10.3 fL (7.4-10.4); Platelet Count 304 10x3/uL (130-400); RBC Distribution Width 13.2 % (11.5-14.5); Red Blood Cell (RBC) Count 4.36 mill/uL (4.70-6.10)
[2024-06-23 18:40] LABS: ALT (SGPT) 23 U/L (8-55); AST (SGOT) 17 U/L (5-34); Albumin 4.2 g/dL (3.5-5.0); Alkaline Phosphatase 78 U/L (40-110); Anion Gap 14 mmol/L (10-20); BUN (Urea Nitrogen) 14 mg/dL (8.4-25.7); Bilirubin, Total 0.4 mg/dL (0.2-1.2); Calc. Creatinine Clearance 0 mL/min (70-130); Calcium 9.2 mg/dL (7.8-10.44); Carbon Dioxide 26 mmol/L (22-29); Chloride 104 mmol/L (98-107); Estimated GFR 64; Globulin 3.8 g/dL (2.4-3.5); Glucose 98 mg/dL (70-105); Sodium 140 mmol/L (136-145)
[2024-06-23 19:17] LABS: Bacteria/HPF None Seen HPF (None Seen); Bilirubin Negative (Negative); Blood, Urine Trace (Negative); CAUTI Indications for Culture Fever or rigors; Clarity Clear (Clear); Glucose, Urine (Dipstick) Normal (Negative); Ketone, Urine Negative (Negative); Leukocyte Negative Leu/uL (Negative); Nitrite Negative (Negative); Protein, Urine (Dipstick) Negative (Neg-Trace); RBC/HPF 0-3 HPF (0-3); Specific Gravity, Urine 1.022 (1.002-1.036); Squamous Epithelial 0-3 HPF (0-3); Urobilinogen Normal mg/dL (Less than 2); WBC/HPF 0-3 HPF (0-3); pH, Urine 5.5 (5.0-9.0)
[2024-06-23 19:20] LABS: Urine Culture Reflex No No
== END 2024-06-23 19:37 | disposition home or self-care (01) ==
LOC: ERS 17:40
DX: N30.01 Acute cystitis with hematuria (principal); I10 Essential (primary) hypertension
CPT/HCPCS: 36415; 74176; 80053; 81001; 85025; 87086

== ENCOUNTER 2024-07-24 09:57 | Emergency (ER) | payer OTHER | END 2024-07-24 11:00 | disposition home or self-care (01) | LOC: ERS 09:57 | DX: S93.402A Sprain of unspecified ligament of left ankle, initial encounter (principal); E78.00 Pure hypercholesterolemia, unspecified; I10 Essential (primary) hypertension; Z79.899 Other long term (current) drug therapy; X50.1XXA Overexertion from prolonged static or awkward postures, initial encounter; Y99.0 Civilian activity done for income or pay | CPT/HCPCS: 99283 ==